=== PATIENT | male | born 1970 | race Caucasian/White ===

== ENCOUNTER 2018-12-15 05:15 | Day surgery (SDC) | payer OTHER ==
[2018-12-14 08:48] VITALS: BMI 25.1
[2018-12-15 07:04] VITALS: TEMP 97.9
[2018-12-15] MEDS ORDERED: BUPIVACAINE HCL/PF 0.25% (2.5MG/ML) 10 ML VIAL ONE (07:14)
[2018-12-15] MEDS ORDERED: methylPREDNISolone ACET (DEPO) 80 MG/1 ML VIAL ONE (07:14)
[2018-12-15] MEDS ORDERED: LIDOCAINE HCL 1%, 10 MG/ML (50 mL VIAL) IJ ONE (07:43)
[2018-12-15] MEDS ORDERED: methylPREDNISolone ACET (DEPO) 80 MG/1 ML VIAL IM ONE (07:46)
[2018-12-15] MEDS ORDERED: BUPIVACAINE HCL/PF 0.25% (2.5MG/ML) 10 ML VIAL IJ ONE (07:46)
[2018-12-15 08:21] VITALS: BP 126/60; PULSE 77
--- NOTE | 2018-12-15 09:05 | OP ---
DATE OF OPERATION: 12/15/2018 PREOPERATIVE DIAGNOSIS: L4-L5 spondylolisthesis with stenosis and recurrent right lumbar radiculopathy. POSTOPERATIVE DIAGNOSIS: L4-L5 spondylolisthesis with stenosis and recurrent right lumbar radiculopathy. ATTENDING SURGEON: Wilian Rose MD PROCEDURE: 1. Right L4-L5 epidural steroid injection. 2. Intraoperative fluoroscopy. ANESTHESIA: Local anesthesia with 5 mL of 1% lidocaine. INDICATIONS: The patient is a 48-year-old male with recurrent lower back pain, right L4 radiculopathy. Because of the persistent symptoms and failure of conservative treatment, he is here for the first epidural steroid injection of the year. The risks of the procedure include, but are not limited to, bleeding, infection, spinal headache, and neurological injury. The patient understands the indications for the procedure, the procedure in detail, risks and benefits, and alternative treatments for his lumbar condition, and he wishes to proceed. No guarantees were given for a favorable outcome. PROCEDURE IN DETAIL: After the patient was taken to the operating room, he was placed in the prone position with a pillow under his hips. Lumbar region was cleaned with alcohol and prepped with Betadine. A skin wheal was raised with 5 mL of 1% Xylocaine. A 20-degree spinal needle was inserted under AP fluoroscopic guidance into the interlaminar space on the right side of L4-L5. Spondylolisthesis and degenerative disc space narrowing is noted at L4-L5. Loss of resistance technique was utilized, and there was no CSF or blood backflow. Needle bed was turned cephalad and laterally towards the neuroforamen. Depo-Medrol 80 mg and 1 mL of 0.25% Marcaine were injected. The needle was withdrawn and sterile bandage was applied. The patient tolerated the procedure well. He was turned back to the supine position, moving bilateral lower extremities well. He did not complain of a headache. WILIAN ROSE M.D. [id number]
== END 2018-12-15 08:38 | disposition home or self-care (01) ==
LOC: JASU-SURG 05:15
PROVIDERS: ATTEND Neurological Surgery
PROC: 3E0R33Z Introduction of Anti-inflammatory into Spinal Canal, Percutaneous Approach (ICD-10-PCS; 2018-12-15)
PROC: B01BZZZ Fluoroscopy of Spinal Cord (ICD-10-PCS; 2018-12-15)
PROC: 3E0R3BZ Introduction of Anesthetic Agent into Spinal Canal, Percutaneous Approach (ICD-10-PCS; principal; 2018-12-15 07:30)
DX: M43.16 Spondylolisthesis, lumbar region (principal); M54.16 Radiculopathy, lumbar region
CPT/HCPCS: 76000-TC-FY

== ENCOUNTER 2019-05-16 06:33 | Day surgery (SDC) | payer OTHER ==
[2019-05-13 11:31] VITALS: BMI 25.1
[~2019-05-16 06:33] MED LIST: BUPIVACAINE HCL/PF 0.25% (2.5MG/ML) 10 ML VIAL IJ ONE; LIDOCAINE HCL 1% PRESERVATIVE FREE - 30ML VIAL IJ ONE; methylPREDNISolone ACET (DEPO) 80 MG/1 ML VIAL IJ ONE
[2019-05-16 07:01] VITALS: TEMP 97.8
[2019-05-16] MEDS ORDERED: BUPIVACAINE HCL/PF 0.25% (2.5MG/ML) 10 ML VIAL ONE (07:08)
[2019-05-16] MEDS ORDERED: methylPREDNISolone ACET (DEPO) 80 MG/1 ML VIAL ONE (07:08)
[2019-05-16] MEDS ORDERED: BUPIVACAINE HCL/PF 0.25% (2.5MG/ML) 10 ML VIAL IJ ONE ×2 (07:53)
[2019-05-16] MEDS ORDERED: LIDOCAINE HCL 1% PRESERVATIVE FREE - 30ML VIAL IJ ONE (07:53)
[2019-05-16] MEDS ORDERED: methylPREDNISolone ACET (DEPO) 80 MG/1 ML VIAL IJ ONE (07:53)
[2019-05-16 08:32] VITALS: PULSE 78
[2019-05-16 09:12] VITALS: BP 136/78
--- NOTE | 2019-05-16 12:13 | OP ---
DATE OF OPERATION: 05/16/2019 PREOPERATIVE DIAGNOSIS: L4-5 spondylolisthesis with lateral recess and foraminal stenosis and resultant right L4 radiculopathy. POSTOPERATIVE DIAGNOSIS: L4-5 spondylolisthesis with lateral recess and foraminal stenosis and resultant right L4 radiculopathy. ATTENDING SURGEON: Wilian Rose MD PROCEDURE: 1. Right L4-5 facet block. 2. Right L4-5 foraminal epidural steroid injection. 3. Intraoperative fluoroscopy. ANESTHESIA: Local anesthesia with 5 mL of 1% Xylocaine and 5 mL of 0.25% Marcaine. COMPLICATIONS: None. INDICATION: The patient is a 49-year-old male with intractable back pain, lumbar radiculopathy. He is here for a 2nd epidural steroid injection and the 1st facet block for his intractable right L4 radiculopathy. Because of intractable symptoms and failure of conservative treatment, he is here for right L4-5 transforaminal epidural steroid injection, a facet block add on to treat his back pain. The risks of procedure include but are not limited to bleeding, infection, spinal headache, and neurological injury. The patient understands the indications for the procedure, the procedure in detail, risks and benefits, and alternative treatments for his lumbar condition, and wished to proceed. No guarantees were given for a favorable outcome. PROCEDURE IN DETAIL: After the patient was taken to the operating room, he was placed in prone position with pillow under his hips. The lumbar region was cleaned with alcohol and prepared with Betadine. A skin wheal was raised with 5 mL of 1% Xylocaine over the right L4-5 facet joint. Another skin wheal was raised with another 5 mL of 1% Xylocaine lateral to the facet joint near the neural foramen. The facet joint was first approached with a number 22-gauge spinal needle and the medial facet capsule was entered. There was no blood backflow. Then 80 mg of Depo-Medrol and 1 mL of 0.25% Marcaine was injected. At this point, a 2nd needle was inserted lateral to the foramen. It was marched down to the facet towards the neural foramen and the needle then approached the inferior aspect of the right L4-5 neural foramen. Some localized irritation was noted. There was no CSF or blood backflow. Then 80 mg of Depo-Medrol and 1 mL of 0.25% Marcaine plain was similarly injected. The needle was withdrawn, sterile bandage was applied. The patient tolerated the procedure well, was returned back to supine position, moving bilateral lower extremities well. He did not complain of headache. There were no new neurological symptoms. WILIAN ROSE M.D. [id number]
== END 2019-05-16 09:13 | disposition home or self-care (01) ==
LOC: JASU-SURG 06:33
PROVIDERS: ATTEND Neurological Surgery
PROC: 3E0T33Z Introduction of Anti-inflammatory into Peripheral Nerves and Plexi, Percutaneous Approach (ICD-10-PCS; 2019-05-16)
PROC: 3E0R3BZ Introduction of Anesthetic Agent into Spinal Canal, Percutaneous Approach (ICD-10-PCS; 2019-05-16)
PROC: 3E0R33Z Introduction of Anti-inflammatory into Spinal Canal, Percutaneous Approach (ICD-10-PCS; 2019-05-16)
PROC: 3E0T3BZ Introduction of Anesthetic Agent into Peripheral Nerves and Plexi, Percutaneous Approach (ICD-10-PCS; principal; 2019-05-16 07:30)
DX: M43.10 Spondylolisthesis, site unspecified (principal); M99.53 Intervertebral disc stenosis of neural canal of lumbar region; M54.16 Radiculopathy, lumbar region
CPT/HCPCS: 76000-TC-FY